=== PATIENT | male | born 1980 | race Two or more races ===

== ENCOUNTER 2016-11-13 08:55 | Emergency (ER) | payer OTHER ==
[~2016-11-13] VITALS: Ht 172.7 cm; Wt 76.2 kg
[~2016-11-13 08:55] MED LIST: BISA10SU14; DOCU-94; HYDR-2598; IMIP25TA34
[2016-11-13 09:40] VITALS: BP 76/40
[2016-11-13 09:43] LABS: Urine Bilirubin Negative (Negative); Urine Blood Negative /uL (Negative); Urine Glucose Normal (Normal); Urine RBC 1 /hpf (0 - 3); Urine Squamous Epithelial Cell FEW /hpf (<5); Urine Urobilinogen Normal (Negative)
[2016-11-13 10:02] LABS: Urine Color Straw (Yellow); Urine Ketone 1+ (Negative); Urine Nitrite POSITIVE (Negative)
== END 2016-11-13 14:04 | disposition home or self-care (01) ==
LOC: ER 08:55
DX: N39.0 Urinary tract infection, site not specified (principal); G89.4 Chronic pain syndrome; Z88.2 Allergy status to sulfonamides; I10 Essential (primary) hypertension; Z98.890 Other specified postprocedural states
CPT/HCPCS: 81001

== ENCOUNTER 2017-02-12 12:09 | Emergency (ER) | payer OTHER ==
[~2017-02-12] VITALS: Ht 170.2 cm; Wt 74.8 kg
[2017-02-12 12:15] VITALS: BP 95/45
== END 2017-02-12 13:19 | disposition home or self-care (01) ==
LOC: ER 12:09
DX: N39.0 Urinary tract infection, site not specified (principal); G82.20 Paraplegia, unspecified; I10 Essential (primary) hypertension; Z88.2 Allergy status to sulfonamides
CPT/HCPCS: 81002

== ENCOUNTER 2017-02-14 21:40 | Emergency (ER) | payer OTHER ==
[~2017-02-14] VITALS: Ht 170.2 cm; Wt 74.8 kg
[2017-02-14 22:13] VITALS: BP 110/52
== END 2017-02-14 23:38 | disposition left against medical advice (07) ==
LOC: ER 21:44
DX: R50.9 Fever, unspecified (principal); Z53.21 Procedure and treatment not carried out due to patient leaving prior to being seen by health care provider

== ENCOUNTER 2017-04-20 14:28 | Emergency (ER) | payer OTHER ==
[~2017-04-20] VITALS: Ht 170.2 cm; Wt 75.3 kg
[2017-04-20 18:58] VITALS: BP 98/54
[2017-04-20] MEDS ORDERED: cefTRIAXone SOD 1,000 MG VL IM ONE (19:15)
== END 2017-04-20 19:39 | disposition home or self-care (01) ==
LOC: ER 14:28
DX: N39.0 Urinary tract infection, site not specified (principal); I10 Essential (primary) hypertension; Z88.2 Allergy status to sulfonamides
CPT/HCPCS: 96372; 99283; J0696

== ENCOUNTER 2017-06-28 09:26 | Inpatient (IN) | payer OTHER ==
[~2017-06-28] VITALS: Ht 165.1 cm; Wt 85.0 kg
[2017-06-28] MEDS ORDERED: SODIUM CHLORIDE 0.9% 1,000 ML IVB ONE (09:39)
[2017-06-28] MEDS ORDERED: LEVOFLOXACIN 500MG 100 ML IV ONE (09:45)
[2017-06-28 10:09] LABS: Basophils # (auto) 0 uL; Basophils % (auto) 0.2 % (0.0-2.0); Eosinophils # (auto) 0.1 uL; Eosinophils % (auto) 1.1 % (0.0-7.0); Hemoglobin 13.4 g/dL (13.5-17.5); Lymphocytes # (auto) 1.2 uL; Lymphocytes % (auto) 11.1 % (10.0-50.0); Mean Corpuscular Hemoglobin 31.4 pg (28.0-32.0); Mean Corpuscular Hgb Conc. 33.6 g/dL (32.0-36.0); Mean Corpuscular Volume 93.5 fL (80.0-100.0); Monocytes # (auto) 0.6 uL; Monocytes % (auto) 6.1 % (0.0-12.0); Neutrophils # (auto) 8.6 uL; Neutrophils % (auto) 81.5 % (37.0-80.0); Platelet Count (auto) 202 10^3/uL (140-450); Red Blood Cells 4.27 10^6/uL (4.5-5.90); White Blood Cell 10.5 10^3/uL (4.4-10.8)
[2017-06-28 10:29] LABS: INR 1.13 (0.9-1.15); Partial Thromboplastin Time 30.3 sec (22.64-33.71); Prothrombin Time 12.3 sec (9.37-12.3)
[2017-06-28 10:39] LABS: Albumin 3.6 g/dL (3.4-5.0); BUN/Creatinine Ratio 24.4; Bilirubin, Total 0.9 mg/dL (0.2-1.0); Calcium 9.2 mg/dL (8.5-10.1); Magnesium 1.9 mg/dL (1.6-2.6); Potassium 3.9 mmol/L (3.5-5.1); Total Protein 7.6 g/dL (6.4-8.2)
[2017-06-28 10:45] LABS: Lactic Acid w/Reflex 2.3 mmol/L (0.4-2.0)
[2017-06-28 11:34] LABS: Urine Bacteria FEW /hpf (None Seen); Urine Blood Negative /uL (Negative); Urine Mucus FEW (None Seen); Urine Specific Gravity 1.031 (1.001-1.035); Urine WBC 315 /hpf (0 - 3)
[2017-06-28] MEDS ORDERED: NITROGLYCERIN 0.4 MG SL TAB SL PRN (12:00)
[2017-06-28] MEDS ORDERED: TEMAZEPAM 15 MG CAP PO PRN (12:00)
[2017-06-28] MEDS ORDERED: ACETAMINOPHEN 325 MG TAB PO PRN (12:00)
[2017-06-28] MEDS ORDERED: DOCUSATE SOD 100 MG CAP PO PRN (12:00)
[2017-06-28] MEDS ORDERED: VANCOMYCIN PER PHARMACY 0 MG IV SCH (12:00)
[2017-06-28] MEDS ORDERED: metroNIDAZOLE 500MG/100ML 100 ML IV ONE (12:00)
[2017-06-28] MEDS ORDERED: MORPHINE SULFATE 10 MG/ML INJ 1ML SDV IV PRN (12:00)
[2017-06-28] MEDS ORDERED: cefTRIAXone 1GM/50ML D5W 50 ML IV ONE (12:00)
[2017-06-28] MEDS ORDERED: ONDANSETRON HCL 4 MG/2 ML VIAL IV PRN (12:00)
[2017-06-28] MEDS: SODIUM CHLORIDE 0.9% 1,000 ML IV SCH ×2 (12:14→20:17)
[2017-06-28] MEDS: ZINC SULFATE 220 MG CAP PO SCH (12:15)
[2017-06-28] MEDS ORDERED: LACTULOSE 20Gm/30ML SOLN PO PRN (12:15)
[2017-06-28] MEDS ORDERED: BACLOFEN 10 MG TAB PO PRN (12:15)
[2017-06-28] MEDS: VANCOMYCIN 1GM/250ML 250 ML IV SCH (13:23)
[2017-06-28] MEDS: HYDROmorphone HCL 2 MG/ML VL IV PRN ×2 (13:45→18:31)
[2017-06-28] MEDS: HYDROcodone-ACET 5/325MG TAB PO PRN ×2 (15:55→22:55)
[2017-06-28 17:53] VITALS: BP 105/56
[2017-06-28 18:18] VITALS: BP 105/56
[2017-06-28 20:00] VITALS: BP 98/50
[2017-06-28 21:53] VITALS: BP 98/50
[2017-06-28] MEDS: ATORVASTATIN 20 MG TAB PO SCH (21:59)
[2017-06-28] MEDS: ASCORBIC ACID 500 MG TAB PO SCH (22:00)
[2017-06-29] MEDS: VANCOMYCIN 1GM/250ML 250 ML IV SCH ×2 (01:17→14:17)
[2017-06-29] MEDS: HYDROcodone-ACET 5/325MG TAB PO PRN (03:56)
[2017-06-29] MEDS: SODIUM CHLORIDE 0.9% 1,000 ML IV SCH ×3 (04:37→22:09)
[2017-06-29 05:00] VITALS: BP 92/41
[2017-06-29] MEDS: HYDROmorphone HCL 2 MG/ML VL IV PRN (06:15)
[2017-06-29 06:59] LABS: Basophils # (auto) 0 uL; Basophils % (auto) 0.3 % (0.0-2.0); Eosinophils # (auto) 0.2 uL; Eosinophils % (auto) 1.9 % (0.0-7.0); Hematocrit 34.1 % (41.0-53.0); Hemoglobin 11.5 g/dL (13.5-17.5); Lymphocytes # (auto) 2.2 uL; Mean Corpuscular Hemoglobin 31.4 pg (28.0-32.0); Mean Corpuscular Hgb Conc. 33.7 g/dL (32.0-36.0); Mean Corpuscular Volume 93.2 fL (80.0-100.0); Monocytes # (auto) 1.3 uL; Monocytes % (auto) 12.3 % (0.0-12.0); Neutrophils # (auto) 6.7 uL; Neutrophils % (auto) 64.5 % (37.0-80.0); Platelet Count (auto) 185 10^3/uL (140-450); Red Blood Cells 3.66 10^6/uL (4.5-5.90); Red Cell Distribution Width 15.2 % (11.8-14.3); White Blood Cell 10.3 10^3/uL (4.4-10.8)
[2017-06-29 07:32] LABS: Albumin 2.8 g/dL (3.4-5.0); BUN/Creatinine Ratio 11.1; Bilirubin, Total 0.8 mg/dL (0.2-1.0); Calcium 8.2 mg/dL (8.5-10.1); Potassium 3.8 mmol/L (3.5-5.1); Total Protein 6.4 g/dL (6.4-8.2)
[2017-06-29 08:00] VITALS: BP 98/61
[2017-06-29 09:00] VITALS: BP 98/61
[2017-06-29] MEDS: ZINC SULFATE 220 MG CAP PO SCH (11:02)
[2017-06-29] MEDS: cefTRIAXone 1GM/50ML D5W 50 ML IV SCH (11:02)
[2017-06-29] MEDS: ASCORBIC ACID 500 MG TAB PO SCH ×2 (11:02→22:10)
[2017-06-29] MEDS: MULTIPLE VITAMIN TAB PO SCH (11:02)
[2017-06-29] MEDS: HYDROcodone-ACET 10/325MG TAB PO PRN ×3 (11:03→22:10)
[2017-06-29] MEDS: BOOST PLUS 8 ounce PO SCH ×2 (12:11→17:55)
[2017-06-29 13:00] VITALS: BP 94/55
[2017-06-29 17:00] VITALS: BP 102/57
[2017-06-29 22:00] VITALS: BP 110/61
[2017-06-29] MEDS: ATORVASTATIN 20 MG TAB PO SCH (22:10)
[2017-06-30] MEDS: VANCOMYCIN 1GM/250ML 250 ML IV SCH ×3 (00:50→18:03)
[2017-06-30] MEDS: HYDROcodone-ACET 10/325MG TAB PO PRN ×3 (04:24→18:48)
[2017-06-30 05:00] VITALS: BP 102/54
[2017-06-30] MEDS: SODIUM CHLORIDE 0.9% 1,000 ML IV SCH ×3 (05:48→22:17)
[2017-06-30 07:43] LABS: Basophils # (auto) 0 uL; Basophils % (auto) 0.3 % (0.0-2.0); Eosinophils # (auto) 0.2 uL; Eosinophils % (auto) 2.2 % (0.0-7.0); Hematocrit 34.3 % (41.0-53.0); Hemoglobin 11.6 g/dL (13.5-17.5); Lymphocytes # (auto) 1.3 uL; Lymphocytes % (auto) 13.5 % (10.0-50.0); Mean Corpuscular Hemoglobin 31.3 pg (28.0-32.0); Mean Corpuscular Hgb Conc. 33.7 g/dL (32.0-36.0); Mean Corpuscular Volume 92.9 fL (80.0-100.0); Monocytes % (auto) 10.4 % (0.0-12.0); Neutrophils # (auto) 7.1 uL; Neutrophils % (auto) 73.6 % (37.0-80.0); Nucleated Red Blood Cells % 0.1 %; Platelet Count (auto) 179 10^3/uL (140-450); White Blood Cell 9.6 10^3/uL (4.4-10.8)
[2017-06-30 07:55] LABS: Albumin 2.8 g/dL (3.4-5.0); BUN/Creatinine Ratio 9.8; Calcium 8.4 mg/dL (8.5-10.1); Potassium 3.4 mmol/L (3.5-5.1)
[2017-06-30] MEDS: BOOST PLUS 8 ounce PO SCH ×3 (08:00→18:03)
[2017-06-30 08:05] LABS: Bilirubin, Total 0.7 mg/dL (0.2-1.0); Total Protein 6.4 g/dL (6.4-8.2)
[2017-06-30 09:00] VITALS: BP 94/40
[2017-06-30] MEDS: cefTRIAXone 1GM/50ML D5W 50 ML IV SCH (09:00)
[2017-06-30] MEDS ORDERED: POTASSIUM CHLORIDE 20 MEQ, LIDOCAINE 1% (LOCAL ANESTH.) 2 ML in SODIUM CHL 0.9% 100 ML IV ONE (09:30)
[2017-06-30] MEDS: ASCORBIC ACID 500 MG TAB PO SCH ×2 (10:00→22:43)
[2017-06-30] MEDS: ZINC SULFATE 220 MG CAP PO SCH (10:00)
[2017-06-30] MEDS: MULTIPLE VITAMIN TAB PO SCH (10:00)
[2017-06-30] MEDS ORDERED: POVIDONE IODINE 10 % TOPICAL OINT 30GM TOP ONE (11:20)
[2017-06-30] MEDS ORDERED: MIDAZOLAM HCL 1MG/1ML-2 ML VIAL ONE (11:26)
[2017-06-30] MEDS ORDERED: PROPOFOL 10 MG/ML 20 ML IV ONE (11:26)
[2017-06-30] MEDS ORDERED: ROCURONIUM 10MG/ML 10ML VIAL IV ONE (11:26)
[2017-06-30] MEDS ORDERED: LIDOCAINE HCL 2 %PF INJ 10ML AMP IJ ONE (11:26)
[2017-06-30] MEDS ORDERED: fentaNYL CITRATE 100 MCG/2 ML VL ONE (11:27)
[2017-06-30] MEDS ORDERED: ceFAZolin 1GM VL ONE (11:52)
[2017-06-30] MEDS ORDERED: NEOSTIGMINE 1 MG/ML INJ (10mg/10ML VIAL) ONE (12:59)
[2017-06-30] MEDS ORDERED: GLYCOPYRROLATE 0.2 MG/ML 1ML VIAL ONE (12:59)
[2017-06-30] MEDS ORDERED: HYDROmorphone HCL 2 MG/ML VL IV PRN (13:15)
[2017-06-30] MEDS ORDERED: NALOXONE HCL 0.4 MG/ML VIAL IV PRN (13:15)
[2017-06-30 17:00] VITALS: BP 111/65
[2017-06-30] MEDS: HYDROmorphone HCL 2 MG/ML VL IV PRN (20:24)
[2017-06-30 21:32] VITALS: BP 115/62
[2017-06-30] MEDS: ATORVASTATIN 20 MG TAB PO SCH (22:43)
[2017-07-01] MEDS: VANCOMYCIN 1GM/250ML 250 ML IV SCH (02:17)
[2017-07-01] MEDS: HYDROcodone-ACET 10/325MG TAB PO PRN ×5 (03:58→21:23)
[2017-07-01 04:56] VITALS: BP 97/53
[2017-07-01] MEDS: SODIUM CHLORIDE 0.9% 1,000 ML IV SCH (05:35)
[2017-07-01 07:17] LABS: Basophils # (auto) 0 uL; Basophils % (auto) 0.2 % (0.0-2.0); Eosinophils # (auto) 0.1 uL; Eosinophils % (auto) 1.6 % (0.0-7.0); Hematocrit 33.8 % (41.0-53.0); Hemoglobin 11.5 g/dL (13.5-17.5); Lymphocytes # (auto) 1.3 uL; Lymphocytes % (auto) 15.5 % (10.0-50.0); Mean Corpuscular Hemoglobin 31.6 pg (28.0-32.0); Mean Corpuscular Hgb Conc. 33.9 g/dL (32.0-36.0); Mean Corpuscular Volume 93.2 fL (80.0-100.0); Monocytes # (auto) 0.9 uL; Monocytes % (auto) 10.6 % (0.0-12.0); Neutrophils # (auto) 6.2 uL; Neutrophils % (auto) 72.1 % (37.0-80.0); Nucleated Red Blood Cells % 0.1 %; Platelet Count (auto) 197 10^3/uL (140-450); Red Blood Cells 3.63 10^6/uL (4.5-5.90); Red Cell Distribution Width 14.9 % (11.8-14.3); White Blood Cell 8.6 10^3/uL (4.4-10.8)
[2017-07-01 07:31] LABS: Potassium 3.4 mmol/L (3.5-5.1)
[2017-07-01 07:35] LABS: Albumin 2.5 g/dL (3.4-5.0); BUN/Creatinine Ratio 6.1; Calcium 8.4 mg/dL (8.5-10.1)
[2017-07-01 07:38] LABS: Bilirubin, Total 0.4 mg/dL (0.2-1.0); Total Protein 6.2 g/dL (6.4-8.2)
[2017-07-01 09:00] VITALS: BP 97/54
[2017-07-01] MEDS: BOOST PLUS 8 ounce PO SCH ×3 (09:12→18:00)
[2017-07-01] MEDS: cefTRIAXone 1GM/50ML D5W 50 ML IV SCH (09:12)
[2017-07-01] MEDS: ZINC SULFATE 220 MG CAP PO SCH (10:49)
[2017-07-01] MEDS: ASCORBIC ACID 500 MG TAB PO SCH ×2 (10:49→21:22)
[2017-07-01] MEDS: MULTIPLE VITAMIN TAB PO SCH (10:49)
[2017-07-01 10:53] LABS: BUN/Creatinine Ratio 5.5; Calcium 8.6 mg/dL (8.5-10.1); Potassium 3.5 mmol/L (3.5-5.1)
[2017-07-01 13:00] VITALS: BP 101/62
[2017-07-01] MEDS: D5W/SOD CHL 0.45%/KCL 20MEQ 1,000 ML IV SCH ×2 (13:01→23:20)
[2017-07-01 17:10] VITALS: BP 101/55
[2017-07-01] MEDS: ATORVASTATIN 20 MG TAB PO SCH (21:22)
[2017-07-01 22:14] VITALS: BP 112/60
[2017-07-02 05:23] VITALS: BP 98/53
[2017-07-02 08:00] VITALS: BP 101/55
[2017-07-02] MEDS: BOOST PLUS 8 ounce PO SCH ×3 (08:00→18:16)
[2017-07-02] MEDS: cefTRIAXone 1GM/50ML D5W 50 ML IV SCH (09:03)
[2017-07-02] MEDS: ZINC SULFATE 220 MG CAP PO SCH (09:03)
[2017-07-02] MEDS: ASCORBIC ACID 500 MG TAB PO SCH (09:04)
[2017-07-02] MEDS: HYDROmorphone HCL 2 MG/ML VL IV PRN (09:04)
[2017-07-02] MEDS: MULTIPLE VITAMIN TAB PO SCH (09:04)
[2017-07-02] MEDS: HYDROcodone-ACET 10/325MG TAB PO PRN ×2 (09:11→18:16)
[2017-07-02 09:36] VITALS: BP_SYST 152; BP_SYST 99; BP_DIAS 58; BP_DIAS 59
[2017-07-02] MEDS: D5W/SOD CHL 0.45%/KCL 20MEQ 1,000 ML IV SCH (12:40)
[2017-07-02 13:00] VITALS: BP 123/69
[2017-07-02] MEDS ORDERED: fentaNYL CITRATE 100 MCG/2 ML VL ONE (13:01)
[2017-07-02] MEDS ORDERED: MIDAZOLAM HCL 1MG/1ML-2 ML VIAL ONE (13:01)
[2017-07-02] MEDS ORDERED: ceFAZolin 1GM VL ONE (13:06)
[2017-07-02] MEDS ORDERED: HYDROmorphone HCL 2 MG/ML VL IV PRN (13:15)
[2017-07-02] MEDS ORDERED: hydrALAZINE HCL 20 MG/ML VL IV PRN (13:15)
[2017-07-02] MEDS ORDERED: LABETALOL HCL 5 MG/ML 4ML SYRINGE IV PRN (13:15)
[2017-07-02] MEDS ORDERED: ePHEDrine SULFATE 50 MG/ML AMP IV PRN (13:15)
[2017-07-02] MEDS ORDERED: MIDAZOLAM HCL 1MG/1ML-2 ML VIAL IV PRN (13:15)
[2017-07-02] MEDS ORDERED: KETOROLAC TROMETH 30 MG/ML 1ML VIAL IV ONE (13:15)
[2017-07-02] MEDS ORDERED: MORPHINE SULF INJ 2 MG/ML SYRINGE 1ML IV PRN (13:15)
[2017-07-02] MEDS ORDERED: ONDANSETRON HCL 4 MG/2 ML VIAL IV ONE (13:15)
[2017-07-02] MEDS ORDERED: DEXAMETHASONE SOD PHOS 10MG/1ML VIAL INJ ONE (13:18)
[2017-07-02] MEDS ORDERED: PROPOFOL 10 MG/ML 20 ML IV ONE (13:18)
[2017-07-02 17:00] VITALS: BP 100/56
[2017-07-02 17:54] VITALS: BP 101/55
== END 2017-07-02 19:30 | disposition home or self-care (01) | DRG 710 ==
LOC: ER 09:26 → TELE 09:27 → TELE-CENTR 17:53
PROVIDERS: ADMIT Internal Medicine; ATTEND Family Medicine
PROC: 0DNW0ZZ Release Peritoneum, Open Approach (ICD-10-PCS; 2017-06-30)
PROC: 0FT40ZZ Resection of Gallbladder, Open Approach (ICD-10-PCS; principal; 2017-06-30 11:39)
PROC: 0JBR0ZZ Excision of Left Foot Subcutaneous Tissue and Fascia, Open Approach (ICD-10-PCS; 2017-07-02)
DX: A41.9 Sepsis, unspecified organism (principal); G82.20 Paraplegia, unspecified; L89.623 Pressure ulcer of left heel, stage 3; E44.0 Moderate protein-calorie malnutrition; K80.00 Calculus of gallbladder with acute cholecystitis without obstruction; E78.5 Hyperlipidemia, unspecified; E86.0 Dehydration; E87.6 Hypokalemia; I10 Essential (primary) hypertension; L97.428 Non-pressure chronic ulcer of left heel and midfoot with other specified severity; K43.9 Ventral hernia without obstruction or gangrene; N39.0 Urinary tract infection, site not specified; K66.0 Peritoneal adhesions (postprocedural) (postinfection); D63.8 Anemia in other chronic diseases classified elsewhere; B96.20 Unspecified Escherichia coli [E. coli] as the cause of diseases classified elsewhere; Z83.3 Family history of diabetes mellitus; Z86.14 Personal history of Methicillin resistant Staphylococcus aureus infection; Z88.2 Allergy status to sulfonamides; Z79.899 Other long term (current) drug therapy; Z87.828 Personal history of other (healed) physical injury and trauma; Z71.3 Dietary counseling and surveillance; Z68.31 Body mass index [BMI] 31.0-31.9, adult
CPT/HCPCS: 36415; 51702; 74176; 76705; 80048; 80053; 80202; 81001; 83605; 83735; 85025; 85610; 85730; 86850; 86900; 86901; 87040; 87070; 87075; 87086; 87088; 87186; 87205; 93005; 94761; 96365; 96367; 96368; 96375; J0690; J0696; J1100; J1956; J2001; J2250; J2405; J2704; J3490

== ENCOUNTER 2018-01-12 09:11 | Emergency (ER) | payer OTHER ==
[~2018-01-12] VITALS: Ht 172.7 cm; Wt 74.8 kg
[~2018-01-12 09:11] MED LIST changes: +ASCO500T11 PO; +ATOR20TA PO; +BACL10TA PO; +BIS10RS PR; -BISA10SU14; -DOCU-94; +SULF400T11 PO
[2018-01-12 10:09] LABS: Urine Bacteria FEW /hpf (None Seen); Urine Blood Negative /uL (Negative); Urine Mucus FEW (None Seen); Urine Specific Gravity 1.014 (1.001-1.035); Urine WBC 44 /hpf (0 - 3)
[2018-01-12 10:52] VITALS: BP 98/43
== END 2018-01-12 11:20 | disposition home or self-care (01) ==
LOC: ER 09:14
DX: N39.0 Urinary tract infection, site not specified (principal); F17.210 Nicotine dependence, cigarettes, uncomplicated; I10 Essential (primary) hypertension; E78.5 Hyperlipidemia, unspecified; Z88.2 Allergy status to sulfonamides; Z90.49 Acquired absence of other specified parts of digestive tract
CPT/HCPCS: 81001

== ENCOUNTER 2018-08-29 07:31 | Emergency (ER) | payer OTHER ==
[~2018-08-29] VITALS: Ht 170.2 cm; Wt 77.1 kg
[2018-08-29 08:03] VITALS: BP 98/48
[2018-08-29] MEDS ORDERED: LIDOCAINE W/ EPINEPHRINE 1 % INJ 30ML ONE (09:00)
[2018-08-29] MEDS ORDERED: cefTRIAXone SOD 1,000 MG VL IM ONE (09:00)
[2018-08-29 10:31] LABS: Urine Bacteria FEW /hpf (None Seen); Urine Blood 1+ /uL (Negative); Urine Mucus FEW (None Seen); Urine Specific Gravity 1.025 (1.001-1.035); Urine WBC 706 /hpf (0 - 3); Urine WBC Clumps PRESENT /hpf (None Seen)
== END 2018-08-29 10:39 | disposition home or self-care (01) ==
LOC: ER 07:31
DX: N39.0 Urinary tract infection, site not specified (principal); L89.309 Pressure ulcer of unspecified buttock, unspecified stage; I10 Essential (primary) hypertension; E78.5 Hyperlipidemia, unspecified; F17.210 Nicotine dependence, cigarettes, uncomplicated; Z90.49 Acquired absence of other specified parts of digestive tract; Z88.2 Allergy status to sulfonamides
CPT/HCPCS: 74176; 81001; 87086; 96372; 99284; J0696; J2001

== ENCOUNTER 2019-04-13 09:58 | Emergency (ER) | payer OTHER ==
[~2019-04-13] VITALS: Ht 172.7 cm; Wt 77.1 kg
[2019-04-13 11:16] VITALS: BP 85/54
[2019-04-13 11:52] LABS: Urine Bacteria FEW /hpf (None Seen); Urine Blood Negative /uL (Negative); Urine Specific Gravity 1.014 (1.001-1.035); Urine WBC 47 /hpf (0 - 3)
[2019-04-13] MEDS ORDERED: cefTRIAXone SOD 1,000 MG VL IM ONE (13:00)
== END 2019-04-13 13:14 | disposition home or self-care (01) ==
LOC: ER 10:05
DX: N39.0 Urinary tract infection, site not specified (principal); R51 Headache; I10 Essential (primary) hypertension; E78.00 Pure hypercholesterolemia, unspecified; F17.210 Nicotine dependence, cigarettes, uncomplicated; Z90.49 Acquired absence of other specified parts of digestive tract; Z88.2 Allergy status to sulfonamides; Z79.899 Other long term (current) drug therapy
CPT/HCPCS: 81001; 96372; 99283; J0696

== ENCOUNTER 2021-06-10 16:09 | Emergency (ER) | payer OTHER ==
[~2021-06-10] VITALS: Ht 170.2 cm; Wt 88.5 kg
[2021-06-10 16:40] VITALS: BP 104/61
[2021-06-10 17:22] LABS: Basophils # (auto) 0 10 ^3/uL (0-0.2); Basophils % (auto) 0.5 % (0.0-2.0); Eosinophils # (auto) 0.2 10 ^3/uL (0-0.8); Eosinophils % (auto) 2.4 % (0.0-7.0); Hematocrit 40.9 % (41.0-53.0); Hemoglobin 13.5 g/dL (13.5-17.5); Lymphocytes # (auto) 2.1 10 ^3/uL (0.4-5.4); Mean Corpuscular Hemoglobin 31.2 pg (28.0-32.0); Mean Corpuscular Hgb Conc. 33.1 g/dL (32.0-36.0); Mean Corpuscular Volume 94.2 fL (80.0-100.0); Monocytes # (auto) 0.5 10 ^3/uL (0-1.3); Monocytes % (auto) 7.8 % (0.0-12.0); Neutrophils # (auto) 4.2 10 ^3/uL (1.6-8.6); Neutrophils % (auto) 59.3 % (37.0-80.0); Nucleated Red Blood Cells % 0.1 %; Red Blood Cells 4.34 10^6/uL (4.5-5.90); Red Cell Distribution Width 15.2 % (11.8-14.3)
[2021-06-10 17:50] LABS: Albumin 3.6 g/dL (3.4-5.0); Anion Gap 2 (5-15); Blood Urea Nitrogen 16 mg/dL (7-18); Calcium 9.2 mg/dL (8.5-10.1); Carbon Dioxide 30 mmol/L (21-32); Chloride 108 mmol/L (98-107); Glucose 94 mg/dL (74-106); Potassium 3.9 mmol/L (3.5-5.1); Sodium 140 mmol/L (136-145)
[2021-06-10 17:55] LABS: Alanine Aminotransferase 38 U/L (16-61); Alkaline Phosphatase 67 U/L (45-117); Aspartate Aminotransferase 19 U/L (15-37); BUN/Creatinine Ratio 30.2; Bilirubin, Total 0.2 mg/dL (0.2-1.0); GFR African American 221 mL/min; GFR Non-African American 183 mL/min; Total Protein 7.6 g/dL (6.4-8.2)
== END 2021-06-11 01:28 | disposition left against medical advice (07) ==
LOC: ER 16:09
DX: R07.89 Other chest pain (principal); I10 Essential (primary) hypertension; E78.5 Hyperlipidemia, unspecified; Z90.49 Acquired absence of other specified parts of digestive tract; Z88.2 Allergy status to sulfonamides; Z53.29 Procedure and treatment not carried out because of patient's decision for other reasons
CPT/HCPCS: 36415; 80053; 84484; 85025; 93005

== ENCOUNTER 2024-06-20 17:16 | Emergency (ER) | payer OTHER ==
[~2024-06-20] VITALS: Ht 172.7 cm; Wt 95.4 kg
[2024-06-20 18:34] LABS: Urine Bacteria MANY /hpf (None Seen); Urine Blood 1+ /uL (Negative); Urine Clarity Turbid (Clear); Urine Color Colorless (Yellow); Urine Mucus FEW (None Seen); Urine Protein, UAD TRACE (Negative); Urine Urobilinogen 2 mg/dL (Negative); Urine WBC 316 /hpf (0 - 3)
[2024-06-20] MEDS ORDERED: CIPR-173 PO (19:21)
[2024-06-20 21:02] VITALS: BP 106/67; PULSE 86; RESP 12; TEMP 98.7; O2SAT 97
[2024-06-20] MEDS: cefTRIAXone SOD 1,000 MG VL IM ONE (21:08)
== END 2024-06-20 21:30 | disposition home or self-care (01) ==
LOC: ER 17:16
DX: N39.0 Urinary tract infection, site not specified (principal); I10 Essential (primary) hypertension; Z79.899 Other long term (current) drug therapy; Z88.2 Allergy status to sulfonamides; Z90.49 Acquired absence of other specified parts of digestive tract
CPT/HCPCS: 81001; 96372; 99283; J0696